=== PATIENT | female | born 1985 | race Caucasian/White ===

== ENCOUNTER 2016-12-05 09:27 | Observation (INO) | payer OTHER ==
[~2016-12-05] VITALS: Ht 158 cm; Wt 78.0 kg
[2016-12-05 10:49] VITALS: BP 112/73
[2016-12-05] MEDS ORDERED: prenatal vit PO (10:56)
== END 2016-12-05 13:35 | disposition home or self-care (01) ==
LOC: 4S 09:27
PROVIDERS: ADMIT Obstetrics & Gynecology; ATTEND Obstetrics & Gynecology
DX: O42.92 Full-term premature rupture of membranes, unspecified as to length of time between rupture and onset of labor (principal); O62.9 Abnormality of forces of labor, unspecified; O26.893 Other specified pregnancy related conditions, third trimester; R10.30 Lower abdominal pain, unspecified; Z3A.39 39 weeks gestation of pregnancy; N89.8 Other specified noninflammatory disorders of vagina
CPT/HCPCS: 59025; G0378

== ENCOUNTER 2016-12-06 23:59 | Inpatient (IN) | payer OTHER ==
[~2016-12-06] VITALS: Ht 157.5 cm; Wt 78.5 kg
[~2016-12-06 23:59] MED LIST: prenatal vit PO
[2016-12-07] MEDS ORDERED: OXYTOCIN 30 UNITS/LACT RINGERS 500 ML IV ONE (01:47)
[2016-12-07] MEDS ORDERED: RINGERS SOLUTION,LACTATED 1,000 ML IV PRN (01:47)
[2016-12-07] MEDS ORDERED: RINGERS SOLUTION,LACTATED 1,000 ML IV ONE ×2 (01:54→14:34)
[2016-12-07] MEDS ORDERED: LIDOCAINE HCL/PF 1% 30 ML VIAL INJ PRN (02:00)
[2016-12-07] MEDS ORDERED: CITRIC ACID/SODIUM CITRATE 30 ML SOLUTION UDCUP PO PRN (02:00)
[2016-12-07] MEDS ORDERED: METOCLOPRAMIDE HCL 5 MG/ML 2 ML VIAL IVP PRN (02:00)
[2016-12-07 02:16] VITALS: BP 121/74
[2016-12-07] MEDS: RINGERS SOLUTION,LACTATED 1,000 ML IV SCH ×2 (02:23→04:34)
[2016-12-07] MEDS: FentaNYL CITRATE-PF 100 MCG/2 ML VIAL IVP PRN ×2 (02:23→02:29)
[2016-12-07 02:42] LABS: BASOPHILS % (AUTO) 0.1 % (0.0-2.0); EOSINOPHILS % (AUTO) 0.7 % (1.0-6.0); HEMATOCRIT 32.8 % (36-46); HEMOGLOBIN 11.4 g/dL (12.0-16.0); LYMPHOCYTES # (AUTO) 1.6 K/uL (1.0-4.8); LYMPHOCYTES % (AUTO) 10.2 % (22.0-44.0); MEAN CORPUSCULAR HEMOGLOBIN 31.5 pg (26.0-34.0); MEAN CORPUSCULAR HGB CONC 34.6 G/dL (31.0-37.0); MEAN CORPUSCULAR VOLUME 91 fL (80-100); MONOCYTES # (AUTO) 0.7 K/uL (0.1-1.0); MONOCYTES % (AUTO) 4.9 % (2.0-9.0); NEUTROPHILS # (AUTO) 12.9 K/uL (1.8-7.7); NEUTROPHILS % (AUTO) 84.1 % (40.0-70.0); RED BLOOD CELL COUNT(AUTO) 3.61 MIL/uL (4.00-5.20); RED CELL DISTRIBUTION WIDTH 14.3 % (11.5-14.5); WHITE BLOOD COUNT (AUTO) 15.4 K/uL (4.5-11.0)
[2016-12-07] MEDS ORDERED: FentaNYL/BUPIV 0.125%/NS/PF 200 ML ED ONE (02:50)
[2016-12-07] MEDS ORDERED: BUPIVACAINE HCL/PF 0.25% 10 ML VIAL ONE (02:52)
[2016-12-07] MEDS ORDERED: FentaNYL/BUPIV 0.125%/NS/PF 200 ML ED PRN (03:23)
[2016-12-07] MEDS ORDERED: DiphenhydrAMINE HCL 50 MG/ML VIAL IVP PRN ×3 (03:30→16:15)
[2016-12-07] MEDS ORDERED: ONDANSETRON HCL 4 MG/2 ML VIAL IVP PRN ×3 (03:30→16:15)
[2016-12-07] MEDS ORDERED: GENTAMICIN 120 MG/NACL ISO-OSM 100 ML IV ONE (05:00)
[2016-12-07] MEDS ORDERED: ACETAMINOPHEN 1000 MG/ISO-OSM 100 ML IV ONE (05:00)
[2016-12-07] MEDS ORDERED: AMPICILLIN SODIUM 2 GM/NS 100 ML IV ONE (05:00)
[2016-12-07] MEDS ORDERED: OXYGEN THERAPY IH SCH (08:00)
[2016-12-07] MEDS ORDERED: AMPICILLIN SODIUM 1 GM/NS 50 ML IV SCH (11:00)
[2016-12-07] MEDS: AMPICILLIN SODIUM 2 GM/NS 100 ML IV SCH ×2 (11:30→18:27)
[2016-12-07] MEDS ORDERED: EPHEDrine SULFATE 50 MG/ML VIAL IM ONE (12:00)
[2016-12-07] MEDS ORDERED: 0.9% SODIUM CHLORIDE 10 ML VIAL IVP ONE (12:00)
[2016-12-07] MEDS ORDERED: EPINEPHrine 1:1,000 [1 MG/ML] AMP IM ONE (12:00)
[2016-12-07] MEDS ORDERED: OXYTOCIN 10 UNITS/ML VIAL IM ONE (12:00)
[2016-12-07] MEDS: GENTAMICIN 80 MG/NACL ISO-OSM 50 ML IV SCH ×2 (14:23→22:41)
[2016-12-07] MEDS ORDERED: PREN-134 PO (14:29)
[2016-12-07] MEDS: ACETAMINOPHEN 1000 MG/ISO-OSM 100 ML IV SCH ×2 (14:32→21:58)
[2016-12-07] MEDS ORDERED: CeFAZolin 2 GM/DEXTROSE 50 ML IV ONE (14:34)
[2016-12-07] MEDS ORDERED: FentaNYL CITRATE-PF 100 MCG/2 ML VIAL ONE (14:35)
[2016-12-07] MEDS ORDERED: LIDOCAINE HCL/PF 2% 5 ML VIAL ONE (14:35)
[2016-12-07] MEDS ORDERED: MORPHINE SULFATE/PF 0.5 MG/ML 10 ML AMP ONE (14:35)
[2016-12-07] MEDS ORDERED: SODIUM BICARBONATE 50 MEQ/50 ML VIAL ONE (14:35)
[2016-12-07] MEDS ORDERED: CITRIC ACID/SODIUM CITRATE 30 ML SOLUTION UDCUP PO ONE (14:45)
[2016-12-07] MEDS ORDERED: METOCLOPRAMIDE HCL 5 MG/ML 2 ML VIAL IVP ONE (14:45)
[2016-12-07] MEDS ORDERED: KETOROLAC TROMETHAMINE 30 MG/ML VIAL IVP ONE (15:45)
[2016-12-07] MEDS ORDERED: PROMETHAZINE HCL 12.5 MG in SODIUM CHLORIDE 0.9% 50 ML IV PRN (15:45)
[2016-12-07] MEDS ORDERED: MEPERIDINE-PF 25 MG/ML SYRINGE IVP PRN (15:45)
[2016-12-07] MEDS ORDERED: FentaNYL CITRATE-PF 100 MCG/2 ML VIAL IVP PRN ×5 (15:45→16:15)
[2016-12-07] MEDS ORDERED: NALBUPHINE HCL 10 MG/ML VIAL IVP PRN ×3 (15:45→16:15)
[2016-12-07] MEDS ORDERED: DEXAMETHASONE SOD PHOS 4 MG/ML VIAL IVP PRN (15:45)
[2016-12-07] MEDS ORDERED: NALOXONE HCL 0.4 MG/ML VIAL IVP PRN (16:15)
[2016-12-07] MEDS ORDERED: RINGERS SOLUTION,LACTATED 1,000 ML IV SCH (16:38)
[2016-12-07] MEDS ORDERED: GLYCERIN/WITCH HAZEL LEAF 40 PADS JAR TP PRN (16:45)
[2016-12-07] MEDS ORDERED: LANOLIN 7 GM OINTMENT TP PRN (16:45)
[2016-12-07] MEDS ORDERED: OxyCODONE HCL/ACETAMINOPHEN 5-325 MG TABLET PO PRN (16:45)
[2016-12-07] MEDS: CLINDAMYCIN 900 MG/D5% WATER 50 ML IV SCH ×2 (17:29→23:41)
[2016-12-07] MEDS: MAGNESIUM HYDROXIDE SUSPENSION 30 ML UDCUP PO SCH (21:12)
[2016-12-07] MEDS: SENNA/DOCUSATE SODIUM 187-50 MG TABLET PO SCH (21:12)
[2016-12-07] MEDS: KETOROLAC TROMETHAMINE 30 MG/ML VIAL IVP SCH (23:20)
[2016-12-08] MEDS: AMPICILLIN SODIUM 2 GM/NS 100 ML IV SCH ×2 (00:28→07:02)
[2016-12-08] MEDS: KETOROLAC TROMETHAMINE 30 MG/ML VIAL IVP SCH (05:07)
[2016-12-08] MEDS: CLINDAMYCIN 900 MG/D5% WATER 50 ML IV SCH (05:26)
[2016-12-08 06:35] LABS: BASOPHILS % (AUTO) 0.3 % (0.0-2.0); EOSINOPHILS % (AUTO) 0.5 % (1.0-6.0); HEMATOCRIT 26.1 % (36-46); LYMPHOCYTES % (AUTO) 11.5 % (22.0-44.0); MEAN CORPUSCULAR HEMOGLOBIN 31.8 pg (26.0-34.0); MEAN CORPUSCULAR HGB CONC 34.4 G/dL (31.0-37.0); MEAN CORPUSCULAR VOLUME 93 fL (80-100); MONOCYTES # (AUTO) 0.7 K/uL (0.1-1.0); MONOCYTES % (AUTO) 4.2 % (2.0-9.0); NEUTROPHILS # (AUTO) 14.2 K/uL (1.8-7.7); NEUTROPHILS % (AUTO) 83.5 % (40.0-70.0); RED BLOOD CELL COUNT(AUTO) 2.82 MIL/uL (4.00-5.20); RED CELL DISTRIBUTION WIDTH 14.2 % (11.5-14.5)
[2016-12-08] MEDS: ACETAMINOPHEN 1000 MG/ISO-OSM 100 ML IV SCH ×2 (06:37→14:26)
[2016-12-08] MEDS: SENNA/DOCUSATE SODIUM 187-50 MG TABLET PO SCH ×2 (09:13→20:44)
[2016-12-08] MEDS: MAGNESIUM HYDROXIDE SUSPENSION 30 ML UDCUP PO SCH ×2 (09:13→20:44)
[2016-12-08] MEDS: IBUPROFEN 600 MG TABLET PO PRN (18:33)
[2016-12-08] MEDS: OxyCODONE HCL/ACETAMINOPHEN 5-325 MG TABLET PO PRN (18:34)
[2016-12-09] MEDS: IBUPROFEN 600 MG TABLET PO PRN ×2 (06:53→18:09)
[2016-12-09] MEDS: OxyCODONE HCL/ACETAMINOPHEN 5-325 MG TABLET PO PRN ×2 (08:12→18:09)
[2016-12-09] MEDS: SENNA/DOCUSATE SODIUM 187-50 MG TABLET PO SCH (09:00)
[2016-12-09] MEDS: MAGNESIUM HYDROXIDE SUSPENSION 30 ML UDCUP PO SCH (09:00)
[2016-12-10] MEDS: OxyCODONE HCL/ACETAMINOPHEN 5-325 MG TABLET PO PRN (06:26)
[2016-12-10] MEDS: IBUPROFEN 600 MG TABLET PO PRN ×2 (06:26→13:34)
[2016-12-10] MEDS: SENNA/DOCUSATE SODIUM 187-50 MG TABLET PO SCH (09:00)
[2016-12-10] MEDS: MAGNESIUM HYDROXIDE SUSPENSION 30 ML UDCUP PO SCH (09:00)
[2016-12-10] MEDS ORDERED: DSS100 PO (10:10)
[2016-12-10] MEDS ORDERED: IBUP-2070 PO (10:10)
[2016-12-10] MEDS ORDERED: FERR-89 PO (10:11)
[2016-12-10] MEDS ORDERED: PERCT PO (10:12)
== END 2016-12-10 15:10 | disposition home or self-care (01) | DRG 766 ==
LOC: OBSVTOIN 23:59 → 4S 23:59
PROVIDERS: ADMIT Obstetrics & Gynecology; ATTEND Obstetrics & Gynecology
PROC: 10D00Z1 Extraction of Products of Conception, Low, Open Approach (ICD-10-PCS; principal; 2016-12-07)
DX: O62.0 Primary inadequate contractions (principal); Z37.0 Single live birth; Z3A.39 39 weeks gestation of pregnancy
CPT/HCPCS: 86850; 86900; 86901; 89060; J0131; J0171; J0290; J0690; J1580; J1885; J2274; J2405; J2590; J2765; J3010; J3490; J7120